=== PATIENT | female | born 1995 | race African-American/Black ===

== ENCOUNTER 2017-08-07 11:52 | Emergency (ER) | payer MEDICAID ==
[~2017-08-07] VITALS: Ht 167.6 cm; Wt 56.0 kg
[2017-08-07 11:54] VITALS: BP 109/81
[2017-08-07] MEDS ORDERED: ACETAMINOPHEN 500MG TABLET PO ONE (12:30)
[2017-08-07] MEDS ORDERED: TETANUS, DIPHTHERIA, PERTUSSIS VAC/PF 0.5ML (>7YR OLD) IM ONE (12:30)
== END 2017-08-07 14:19 | disposition home or self-care (01) ==
LOC: ER 12:03
DX: S61.412A Laceration without foreign body of left hand, initial encounter (principal); S61.411A Laceration without foreign body of right hand, initial encounter; W25.XXXA Contact with sharp glass, initial encounter; Y93.89 Activity, other specified; Y92.89 Other specified places as the place of occurrence of the external cause; Y99.8 Other external cause status
CPT/HCPCS: 90471; 90715; 99283; X7700; Z7610

== ENCOUNTER 2018-05-02 13:22 | Emergency (ER) | payer MEDICAID ==
[~2018-05-02] VITALS: Ht 160 cm; Wt 48.0 kg
[2018-05-02 13:59] VITALS: BP 139/91
== END 2018-05-02 16:37 | disposition left against medical advice (07) ==
LOC: ER 15:01
DX: R07.89 Other chest pain (principal); F12.10 Cannabis abuse, uncomplicated; R19.7 Diarrhea, unspecified; R11.10 Vomiting, unspecified
CPT/HCPCS: 93005; 99284